=== PATIENT | male | born 1990 | race Two or more races ===

== ENCOUNTER 2020-12-19 00:33 | Inpatient (IN) | payer MEDICARE, MEDICAID ==
[~2020-12-19] VITALS: Ht 170.2 cm; Wt 69.3 kg
[2020-12-19] MEDS ORDERED: LEVE500T20 PO (02:04)
[2020-12-19 02:23] LABS: COVID AG,FIA SOURCE NASOPHARYNGEAL
[2020-12-19 02:37] LABS: BASOPHILS % (AUTO) 0.2 % (0.0-2.0); EOSINOPHILS % (AUTO) 0.2 % (1.0-6.0); HEMATOCRIT 46.6 % (41-53); HEMOGLOBIN 15.6 g/dL (13.5-17.5); LYMPHOCYTES # (AUTO) 1.1 K/uL (1.0-4.8); LYMPHOCYTES % (AUTO) 8.1 % (22.0-44.0); MEAN CORPUSCULAR HEMOGLOBIN 31.2 pg (26.0-34.0); MEAN CORPUSCULAR HGB CONC 33.4 G/dL (31.0-37.0); MEAN CORPUSCULAR VOLUME 94 fL (80-100); MONOCYTES # (AUTO) 0.7 K/uL (0.1-1.0); NEUTROPHILS # (AUTO) 12.2 K/uL (1.8-7.7); PLATELET COUNT (AUTO) 132 K/uL (150-450); RED BLOOD CELL COUNT(AUTO) 4.99 MIL/uL (4.50-5.90)
[2020-12-19 02:47] LABS: AMPHET/METH SCREEN,URINE NEGATIVE (NEGATIVE); BARBITURATE SCREEN, URINE NEGATIVE (NEGATIVE); BENZODIAZEPINES SCREEN,URINE NEGATIVE (NEGATIVE); CANNABINOID SCREEN,URINE POSITIVE (NEGATIVE); COCAINE SCREEN,URINE NEGATIVE (NEGATIVE); METHADONE SCREEN, URINE NEGATIVE (NEGATIVE); OPIATE SCREEN,URINE NEGATIVE (NEGATIVE)
[2020-12-19 02:47] LABS: NEUTROPHILS % (AUTO) 86.5 % (40.0-70.0)
[2020-12-19 02:48] LABS: PHENCYCLIDINE SCREEN,URINE NEGATIVE (NEGATIVE)
[2020-12-19 02:58] LABS: ANION GAP 12 mmol/L (8-16); CALCIUM, TOTAL 8.9 mg/dL (8.8-10.5); CARBON DIOXIDE 28 mmol/L (22-29); CHLORIDE 106 mmol/L (98-107); CREATININE 1.09 mg/dL (0.60-1.30); GLOMERULAR FILTR. RATE CALC > 60 mL/min (>60); GLUCOSE,RANDOM 118 mg/dL (70-110); POTASSIUM 3.2 mmol/L (3.5-5.1); SODIUM SERUM 146 mmol/L (136-145); UREA NITROGEN, BLOOD 6 mg/dL (7-18)
[2020-12-19 03:12] LABS: ALANINE AMINOTRANSFERASE 20 U/L (12-78); ALBUMIN 4.2 g/dL (3.4-5.0); ALKALINE PHOSPHATASE 116 U/L (46-116); ASPARTATE AMINOTRANSFERASE 28 U/L (15-37); BILIRUBIN,TOTAL 0.3 mg/dL (0.1-1.0)
[2020-12-19] MEDS ORDERED: HALOPERIDOL 5 MG TABLET PO PRN (03:15)
[2020-12-19] MEDS ORDERED: POTASSIUM CHLORIDE 20 MEQ ER TABLET PO ONE (03:30)
[2020-12-19 03:32] LABS: LACTIC ACID 3.5 mmol/L (0.4-2.0)
[2020-12-19] MEDS ORDERED: DiphenhydrAMINE HCL 50 MG/ML VIAL ONE (03:37)
[2020-12-19] MEDS ORDERED: HALOPERIDOL LACTATE 5 MG/ML VIAL ONE (03:37)
[2020-12-19] MEDS ORDERED: LORazepam 2 MG/ML VIAL ONE (03:37)
[2020-12-19] MEDS ORDERED: DiphenhydrAMINE HCL 50 MG/ML VIAL IM ONE (03:45)
[2020-12-19] MEDS ORDERED: LORazepam 2 MG/ML VIAL IM ONE (03:45)
[2020-12-19] MEDS ORDERED: LevETIRAcetam 1,000 MG in DEXTROSE 5%-WATER 100 ML IV ONE (03:45)
[2020-12-19] MEDS ORDERED: SODIUM CHLORIDE 0.9% 2,000 ML IV ONE (03:45)
[2020-12-19] MEDS ORDERED: HALOPERIDOL LACTATE 5 MG/ML VIAL IM ONE (03:45)
[2020-12-19 05:03] LABS: APPEARANCE,URINE CLEAR (CLEAR); BILIRUBIN,URINE NEGATIVE (NEGATIVE); GLUCOSE, URINE (UA) NEGATIVE (NEGATIVE); KETONES,URINE TRACE mg/dL (NEGATIVE); LEUKOCYTE ESTERASE ,URINE NEGATIVE (NEGATIVE); NITRATE,URINE NEGATIVE (NEGATIVE); OCCULT BLOOD,URINE TRACE (NEGATIVE); PROTEIN,URINE POS 1+ (NEGATIVE); UROBILINOGEN,URINE 0.2 mg/dL (<=1.0)
[2020-12-19] MEDS ORDERED: LORazepam 2 MG/ML VIAL IVP ONE (05:45)
[2020-12-19 05:48] LABS: BACTERIA,URINE None Seen /HPF (None Seen); RBC,URINE None Seen /HPF (0-2); WBC,URINE None Seen /HPF (0-5)
[2020-12-19] MEDS ORDERED: DiphenhydrAMINE HCL 50 MG/ML VIAL IVP ONE (06:45)
[2020-12-19] MEDS: LORazepam 2 MG TABLET PO PRN (23:42)
[2020-12-20 06:38] LABS: CHOL/HDL RATIO 4.8 (4.2-7.3); CHOLESTEROL 237 mg/dL (131-200); HDL CHOLESTEROL 49 mg/dL (40-60); LDL CHOL (CALC.) 154 mg/dL (0-130); TRIGLYCERIDES 172 mg/dL (15-150)
[2020-12-20 17:37] VITALS: BP 146/85
[2020-12-20] MEDS ORDERED: INFLUENZA VIRUS VACCINE QVS 2021-22 (6MO+)/PF 60 MCG/0.5 ML SYRINGE IM. ONE (18:15)
[2020-12-20] MEDS: ZOLPIDEM TARTRATE 10 MG TABLET PO PRN (20:43)
[2020-12-21 00:08] VITALS: BP 125/75
[2020-12-21] MEDS: LORazepam 2 MG TABLET PO PRN (00:20)
[2020-12-21 07:56] LABS: HEMOGLOBIN A1C 5.4 % (3.8-5.6)
[2020-12-21 08:06] VITALS: BP 142/83
[2020-12-21 08:16] LABS: FREE T4 (FREE THYROXINE) 1.49 ng/dL (0.76-1.46); POTASSIUM 3.3 mmol/L (3.5-5.1); THYROID STIMULATING HORMONE 1.44 uIU/mL (0.36-3.74)
[2020-12-21 08:20] LABS: LACTIC ACID 0.8 mmol/L (0.4-2.0)
[2020-12-21] MEDS: LevETIRAcetam 500 MG TABLET PO SCH ×2 (08:20→16:31)
[2020-12-21] MEDS ORDERED: GuaiFENesin/D-METHORPHAN [SUGAR-FREE] 200-20MG/10 ML SYRUP UDCUP PO PRN (15:30)
[2020-12-21] MEDS ORDERED: IBUPROFEN 400 MG TABLET PO PRN (15:30)
[2020-12-21] MEDS ORDERED: ONDANSETRON HCL 4 MG TABLET PO PRN (15:30)
[2020-12-21] MEDS ORDERED: DOCUSATE SODIUM 100 MG CAPSULE PO PRN (15:30)
[2020-12-21] MEDS ORDERED: PETROLATUM,WHITE 28 GM JELLY TP PRN (15:30)
[2020-12-21] MEDS ORDERED: MAGNESIUM HYDROXIDE SUSPENSION 30 ML UDCUP PO PRN (15:30)
[2020-12-21] MEDS ORDERED: LOPERAMIDE HCL 2 MG CAPSULE PO PRN (15:30)
[2020-12-21] MEDS ORDERED: ALBUTEROL SULFATE HFA 90 MCG/PUFF 8 GM INHALER IH PRN (15:30)
[2020-12-21] MEDS ORDERED: MAG HYDROX/AL HYDROX/SIMETH ES 30 ML SUSPENSION UDCUP PO PRN (15:30)
[2020-12-21] MEDS ORDERED: ACETAMINOPHEN 325 MG TABLET PO PRN (15:30)
[2020-12-21] MEDS ORDERED: CloNIDine HCL 0.1 MG TABLET PO PRN (15:30)
[2020-12-21] MEDS ORDERED: NICOTINE 14 MG/24 HOUR PATCH TD PRN (15:30)
[2020-12-21 16:05] VITALS: BP 137/88
[2020-12-21] MEDS: OLANZapine 5 MG TABLET PO SCH (16:31)
[2020-12-21] MEDS ORDERED: LevETIRAcetam 500 MG TABLET PO SCH (17:00)
[2020-12-21] MEDS ORDERED: POTASSIUM CHLORIDE 20 MEQ ER TABLET PO ONE (19:00)
[2020-12-22] MEDS: ZOLPIDEM TARTRATE 10 MG TABLET PO PRN (00:08)
[2020-12-22 00:13] VITALS: BP 118/77
[2020-12-22] MEDS: LevETIRAcetam 500 MG TABLET PO SCH ×2 (08:09→16:17)
[2020-12-22] MEDS: OLANZapine 5 MG TABLET PO SCH ×2 (08:09→16:17)
[2020-12-22 08:22] VITALS: BP 130/78
[2020-12-22] MEDS ORDERED: POTASSIUM CHLORIDE 20 MEQ ER TABLET PO ONE (16:00)
[2020-12-22 16:10] VITALS: BP 127/88
[2020-12-23 00:13] VITALS: BP 117/79
[2020-12-23 08:09] VITALS: BP 126/94
[2020-12-23] MEDS: OLANZapine 5 MG TABLET PO SCH ×2 (09:51→17:29)
[2020-12-23] MEDS: LevETIRAcetam 500 MG TABLET PO SCH ×2 (09:51→17:28)
[2020-12-23 16:07] VITALS: BP 146/103
[2020-12-23] MEDS: LORazepam 2 MG TABLET PO PRN (17:31)
[2020-12-24 01:38] VITALS: BP 127/90
[2020-12-24 08:13] VITALS: BP 125/86
[2020-12-24 08:26] LABS: BASOPHILS % (AUTO) 0.6 % (0.0-2.0); EOSINOPHILS % (AUTO) 1.8 % (1.0-6.0); HEMATOCRIT 43.8 % (41-53); LYMPHOCYTES # (AUTO) 1.7 K/uL (1.0-4.8); LYMPHOCYTES % (AUTO) 35.3 % (22.0-44.0); MEAN CORPUSCULAR HEMOGLOBIN 31.6 pg (26.0-34.0); MEAN CORPUSCULAR HGB CONC 34.2 G/dL (31.0-37.0); MEAN CORPUSCULAR VOLUME 93 fL (80-100); MONOCYTES # (AUTO) 0.4 K/uL (0.1-1.0); MONOCYTES % (AUTO) 8.7 % (2.0-9.0); NEUTROPHILS # (AUTO) 2.6 K/uL (1.8-7.7); NEUTROPHILS % (AUTO) 53.6 % (40.0-70.0); PLATELET COUNT (AUTO) 146 K/uL (150-450); RED BLOOD CELL COUNT(AUTO) 4.73 MIL/uL (4.50-5.90); RED CELL DISTRIBUTION WIDTH 13.4 % (11.5-14.5)
[2020-12-24] MEDS: OLANZapine 5 MG TABLET PO SCH (09:32)
[2020-12-24] MEDS: LevETIRAcetam 500 MG TABLET PO SCH ×2 (09:32→17:11)
[2020-12-24 16:12] VITALS: BP 116/88
[2020-12-24] MEDS: OLANZapine 10 MG TABLET PO SCH (20:32)
[2020-12-24] MEDS: ZOLPIDEM TARTRATE 10 MG TABLET PO PRN (23:15)
[2020-12-25 00:20] VITALS: BP 118/83
[2020-12-25] MEDS: LORazepam 2 MG TABLET PO PRN (03:21)
[2020-12-25 07:22] LABS: COVID AG,FIA SOURCE NASOPHARYNGEAL
[2020-12-25 08:28] VITALS: BP 135/95
[2020-12-25] MEDS: OLANZapine 10 MG TABLET PO SCH ×2 (09:13→20:47)
[2020-12-25] MEDS: LevETIRAcetam 500 MG TABLET PO SCH ×2 (09:14→16:40)
[2020-12-25] MEDS: BACITRACIN 28 GM OINTMENT TP SCH ×2 (09:49→16:49)
[2020-12-25 16:15] VITALS: BP 130/94
[2020-12-25 16:57] VITALS: BP 118/78
[2020-12-26 06:25] VITALS: BP 127/83
[2020-12-26] MEDS: OLANZapine 10 MG TABLET PO SCH ×2 (08:39→20:19)
[2020-12-26] MEDS: LevETIRAcetam 500 MG TABLET PO SCH ×2 (08:39→16:13)
[2020-12-26] MEDS: BACITRACIN 28 GM OINTMENT TP SCH ×2 (08:41→16:13)
[2020-12-26 10:47] VITALS: BP 127/64
[2020-12-26 16:20] VITALS: BP 139/90
[2020-12-27 05:18] VITALS: BP 120/83
[2020-12-27] MEDS: LevETIRAcetam 500 MG TABLET PO SCH ×2 (08:33→16:34)
[2020-12-27] MEDS: BACITRACIN 28 GM OINTMENT TP SCH ×2 (08:33→16:34)
[2020-12-27] MEDS: OLANZapine 10 MG TABLET PO SCH ×2 (08:33→20:30)
[2020-12-27 08:56] VITALS: BP 129/92
[2020-12-27 19:24] VITALS: BP 129/85
[2020-12-27] MEDS: ZOLPIDEM TARTRATE 10 MG TABLET PO PRN (22:45)
[2020-12-28 00:58] VITALS: BP 122/86
[2020-12-28 02:37] VITALS: BP 114/72
[2020-12-28] MEDS: OMEGA-3/DHA/EPA/FISH OIL 1,000 MG CAPSULE PO SCH (08:49)
[2020-12-28] MEDS: MULTIVITAMINS WITH MINERALS, THERAPEUTIC TABLET PO SCH (08:49)
[2020-12-28] MEDS: LevETIRAcetam 500 MG TABLET PO SCH ×2 (08:49→16:16)
[2020-12-28] MEDS: OLANZapine 10 MG TABLET PO SCH ×2 (08:49→20:26)
[2020-12-28] MEDS: FOLIC ACID 1 MG TABLET PO SCH (08:49)
[2020-12-28] MEDS: THIAMINE 100 MG TABLET PO SCH (08:50)
[2020-12-28] MEDS: BACITRACIN 28 GM OINTMENT TP SCH ×2 (08:50→16:16)
[2020-12-28 10:17] VITALS: BP 126/84
[2020-12-28 17:16] VITALS: BP 130/80
[2020-12-29 00:50] VITALS: BP_SYST 125; BP_SYST 140; BP_DIAS 95; BP_DIAS 96
[2020-12-29 08:19] VITALS: BP 137/92
[2020-12-29] MEDS: OLANZapine 10 MG TABLET PO SCH ×2 (09:07→20:02)
[2020-12-29] MEDS: FOLIC ACID 1 MG TABLET PO SCH (09:07)
[2020-12-29] MEDS: LevETIRAcetam 500 MG TABLET PO SCH ×2 (09:07→16:29)
[2020-12-29] MEDS: OMEGA-3/DHA/EPA/FISH OIL 1,000 MG CAPSULE PO SCH (09:07)
[2020-12-29] MEDS: THIAMINE 100 MG TABLET PO SCH (09:07)
[2020-12-29] MEDS: MULTIVITAMINS WITH MINERALS, THERAPEUTIC TABLET PO SCH (09:07)
[2020-12-29] MEDS: BACITRACIN 28 GM OINTMENT TP SCH ×2 (09:08→16:29)
[2020-12-29 16:16] VITALS: BP 128/82
[2020-12-30 02:04] VITALS: BP 137/87
[2020-12-30] MEDS: ZOLPIDEM TARTRATE 10 MG TABLET PO PRN (02:04)
[2020-12-30 08:26] VITALS: BP 131/89
[2020-12-30] MEDS: THIAMINE 100 MG TABLET PO SCH (08:27)
[2020-12-30] MEDS: FOLIC ACID 1 MG TABLET PO SCH (08:27)
[2020-12-30] MEDS: OMEGA-3/DHA/EPA/FISH OIL 1,000 MG CAPSULE PO SCH (08:28)
[2020-12-30] MEDS: OLANZapine 10 MG TABLET PO SCH ×2 (08:28→20:04)
[2020-12-30] MEDS: LevETIRAcetam 500 MG TABLET PO SCH ×2 (08:28→16:31)
[2020-12-30] MEDS: MULTIVITAMINS WITH MINERALS, THERAPEUTIC TABLET PO SCH (08:28)
[2020-12-30] MEDS: BACITRACIN 28 GM OINTMENT TP SCH ×2 (09:02→16:31)
[2020-12-30 16:17] VITALS: BP 120/71
[2020-12-31 00:38] VITALS: BP 127/79
[2020-12-31 08:16] VITALS: BP 130/72
[2020-12-31] MEDS: THIAMINE 100 MG TABLET PO SCH (08:26)
[2020-12-31] MEDS: FOLIC ACID 1 MG TABLET PO SCH (08:26)
[2020-12-31] MEDS: OMEGA-3/DHA/EPA/FISH OIL 1,000 MG CAPSULE PO SCH (08:27)
[2020-12-31] MEDS: MULTIVITAMINS WITH MINERALS, THERAPEUTIC TABLET PO SCH (08:27)
[2020-12-31] MEDS: OLANZapine 10 MG TABLET PO SCH ×2 (08:27→20:24)
[2020-12-31] MEDS: LevETIRAcetam 500 MG TABLET PO SCH ×2 (08:27→16:04)
[2020-12-31] MEDS: BACITRACIN 28 GM OINTMENT TP SCH ×2 (08:32→16:04)
[2020-12-31 16:19] VITALS: BP 129/74
[2021-01-01 01:34] VITALS: BP 130/76
[2021-01-01 07:33] LABS: COVID AG,FIA SOURCE NASOPHARYNGEAL
[2021-01-01 08:10] VITALS: BP 119/88
[2021-01-01] MEDS: THIAMINE 100 MG TABLET PO SCH (09:02)
[2021-01-01] MEDS: MULTIVITAMINS WITH MINERALS, THERAPEUTIC TABLET PO SCH (09:02)
[2021-01-01] MEDS: OLANZapine 10 MG TABLET PO SCH ×2 (09:02→20:36)
[2021-01-01] MEDS: LevETIRAcetam 500 MG TABLET PO SCH ×2 (09:02→16:41)
[2021-01-01] MEDS: FOLIC ACID 1 MG TABLET PO SCH (09:03)
[2021-01-01] MEDS: BACITRACIN 28 GM OINTMENT TP SCH ×2 (09:03→16:42)
[2021-01-01] MEDS: OMEGA-3/DHA/EPA/FISH OIL 1,000 MG CAPSULE PO SCH (09:03)
[2021-01-01 16:21] VITALS: BP 120/89
[2021-01-02 05:09] VITALS: BP 142/91
[2021-01-02 08:17] VITALS: BP 143/83
[2021-01-02] MEDS: FOLIC ACID 1 MG TABLET PO SCH (08:54)
[2021-01-02] MEDS: BACITRACIN 28 GM OINTMENT TP SCH ×2 (08:54→16:31)
[2021-01-02] MEDS: LevETIRAcetam 500 MG TABLET PO SCH ×2 (08:54→16:31)
[2021-01-02] MEDS: OLANZapine 10 MG TABLET PO SCH ×2 (08:54→20:29)
[2021-01-02] MEDS: MULTIVITAMINS WITH MINERALS, THERAPEUTIC TABLET PO SCH (08:54)
[2021-01-02] MEDS: THIAMINE 100 MG TABLET PO SCH (08:54)
[2021-01-02] MEDS: OMEGA-3/DHA/EPA/FISH OIL 1,000 MG CAPSULE PO SCH (08:54)
[2021-01-02 16:13] VITALS: BP 128/81
[2021-01-03 00:21] VITALS: BP 116/92
[2021-01-03] MEDS: MULTIVITAMINS WITH MINERALS, THERAPEUTIC TABLET PO SCH (08:56)
[2021-01-03] MEDS: OLANZapine 10 MG TABLET PO SCH ×2 (08:56→20:33)
[2021-01-03] MEDS: OMEGA-3/DHA/EPA/FISH OIL 1,000 MG CAPSULE PO SCH (08:56)
[2021-01-03] MEDS: THIAMINE 100 MG TABLET PO SCH (08:56)
[2021-01-03] MEDS: FOLIC ACID 1 MG TABLET PO SCH (08:56)
[2021-01-03] MEDS: LevETIRAcetam 500 MG TABLET PO SCH ×2 (08:57→16:36)
[2021-01-03] MEDS: BACITRACIN 28 GM OINTMENT TP SCH ×2 (08:57→16:36)
[2021-01-03 09:08] VITALS: BP 139/75
[2021-01-03 16:10] VITALS: BP 132/91
[2021-01-04 00:30] VITALS: BP 127/82
[2021-01-04 08:21] VITALS: BP 135/67
[2021-01-04] MEDS: FOLIC ACID 1 MG TABLET PO SCH (08:45)
[2021-01-04] MEDS: OLANZapine 10 MG TABLET PO SCH ×2 (08:45→20:35)
[2021-01-04] MEDS: THIAMINE 100 MG TABLET PO SCH (08:45)
[2021-01-04] MEDS: LevETIRAcetam 500 MG TABLET PO SCH ×2 (08:46→16:35)
[2021-01-04] MEDS: OMEGA-3/DHA/EPA/FISH OIL 1,000 MG CAPSULE PO SCH (08:46)
[2021-01-04] MEDS: BACITRACIN 28 GM OINTMENT TP SCH ×2 (08:46→16:35)
[2021-01-04] MEDS: MULTIVITAMINS WITH MINERALS, THERAPEUTIC TABLET PO SCH (08:46)
[2021-01-04 16:14] VITALS: BP 137/86
[2021-01-05 00:10] VITALS: BP 131/81
[2021-01-05 08:26] VITALS: BP 110/66
[2021-01-05] MEDS: LevETIRAcetam 500 MG TABLET PO SCH ×2 (08:35→16:33)
[2021-01-05] MEDS: OMEGA-3/DHA/EPA/FISH OIL 1,000 MG CAPSULE PO SCH (08:35)
[2021-01-05] MEDS: THIAMINE 100 MG TABLET PO SCH (08:35)
[2021-01-05] MEDS: FOLIC ACID 1 MG TABLET PO SCH (08:35)
[2021-01-05] MEDS: MULTIVITAMINS WITH MINERALS, THERAPEUTIC TABLET PO SCH (08:35)
[2021-01-05] MEDS: OLANZapine 10 MG TABLET PO SCH ×2 (08:37→20:37)
[2021-01-05] MEDS: BACITRACIN 28 GM OINTMENT TP SCH ×2 (08:37→16:33)
[2021-01-05 16:10] VITALS: BP 146/81
[2021-01-06] VITALS (7 sets, daily range): BP systolic 116–146; BP diastolic 72–93
[2021-01-06] MEDS: MULTIVITAMINS WITH MINERALS, THERAPEUTIC TABLET PO SCH (08:46)
[2021-01-06] MEDS: OMEGA-3/DHA/EPA/FISH OIL 1,000 MG CAPSULE PO SCH (08:46)
[2021-01-06] MEDS: THIAMINE 100 MG TABLET PO SCH (08:47)
[2021-01-06] MEDS: LevETIRAcetam 500 MG TABLET PO SCH ×2 (08:47→16:39)
[2021-01-06] MEDS: BACITRACIN 28 GM OINTMENT TP SCH ×2 (08:47→16:39)
[2021-01-06] MEDS: FOLIC ACID 1 MG TABLET PO SCH (08:47)
[2021-01-06] MEDS: OLANZapine 10 MG TABLET PO SCH ×2 (08:47→20:31)
[2021-01-06] MEDS ORDERED: OLAN10TA74 PO (20:38)
[2021-01-07 01:03] VITALS: BP 138/92
[2021-01-07 08:10] VITALS: BP 130/76
[2021-01-07] MEDS: FOLIC ACID 1 MG TABLET PO SCH (08:26)
[2021-01-07] MEDS: THIAMINE 100 MG TABLET PO SCH (08:26)
[2021-01-07] MEDS: MULTIVITAMINS WITH MINERALS, THERAPEUTIC TABLET PO SCH (08:26)
[2021-01-07] MEDS: OLANZapine 10 MG TABLET PO SCH (08:26)
[2021-01-07] MEDS: LevETIRAcetam 500 MG TABLET PO SCH (08:27)
[2021-01-07] MEDS: OMEGA-3/DHA/EPA/FISH OIL 1,000 MG CAPSULE PO SCH (08:27)
[2021-01-07] MEDS: BACITRACIN 28 GM OINTMENT TP SCH (08:27)
== END 2021-01-07 13:10 | disposition home or self-care (01) | DRG 885 ==
LOC: EMS 00:34 → B2X 12-20 15:16
PROVIDERS: ADMIT Psychiatry & Neurology Child & Adolescent Psychiatry; ATTEND Psychiatry & Neurology Child & Adolescent Psychiatry
DX: F20.0 Paranoid schizophrenia (principal); F79 Unspecified intellectual disabilities; Z78.1 Physical restraint status; F10.10 Alcohol abuse, uncomplicated; E87.6 Hypokalemia; D69.6 Thrombocytopenia, unspecified; G40.909 Epilepsy, unspecified, not intractable, without status epilepticus; F41.9 Anxiety disorder, unspecified; G44.209 Tension-type headache, unspecified, not intractable; F12.90 Cannabis use, unspecified, uncomplicated; Z59.00 Homelessness unspecified; Z20.822 Contact with and (suspected) exposure to COVID-19; Z79.899 Other long term (current) drug therapy
CPT/HCPCS: 80053; 80061; 81001; 83036; 83605; 84132; 84439; 84443; 85025; 99291; G0480; J0712; J1200; J1630; J2060; J7060

== ENCOUNTER 2021-07-03 20:04 | Emergency (ER) | payer MEDICARE, OTHER ==
[~2021-07-03] VITALS: Ht 177.8 cm; Wt 92.0 kg
[~2021-07-03 20:04] MED LIST: LEVE500T20 PO; OLAN10TA74 PO
[2021-07-03] MEDS ORDERED: LevETIRAcetam 1,000 MG in DEXTROSE 5%-WATER 100 ML IV ONE (20:15)
[2021-07-03] MEDS ORDERED: SODIUM CHLORIDE 0.9% 1,000 ML IV ONE (20:30)
[2021-07-03 20:54] LABS: CALCIUM, TOTAL 9.1 mg/dL (8.8-10.5); CREATININE 1.49 mg/dL (0.60-1.30)
[2021-07-03 20:59] VITALS: BP 124/82
== END 2021-07-03 22:53 | disposition home or self-care (01) ==
LOC: EMS 20:11
DX: G40.909 Epilepsy, unspecified, not intractable, without status epilepticus (principal); F79 Unspecified intellectual disabilities; Z87.39 Personal history of other diseases of the musculoskeletal system and connective tissue
CPT/HCPCS: 36415; 71045; 80048; 82550; 96365; 96366; 99284; J0712; J7060